=== PATIENT | female | born 1950 | race Two or more races ===

== ENCOUNTER 2019-09-21 07:42 | Day surgery (SDC) | payer OTHER ==
[~2019-09-21 07:42] MED LIST: CEFTIN250 MG PO; CLONAZEPAM1 MG; DEPAKOTE ER500 MG; FLUCONAZOLE150 MG PO; KETO10TA2 PO; PAROXETINE HCL30 MG; SYNTHROID88 MCG
== END 2019-09-21 14:00 | disposition home or self-care (01) ==
LOC: AMB-ENDOS 07:42
PROVIDERS: ATTEND Surgery
DX: K62.89 Other specified diseases of anus and rectum (principal); K64.8 Other hemorrhoids

== ENCOUNTER 2022-05-06 14:40 | Emergency (ER) | payer OTHER ==
[~2022-05-06] VITALS: Ht 167.6 cm; Wt 79.8 kg
[2022-05-06] MEDS ORDERED: NITROFURANTOIN100 MG PO (22:00)
== END 2022-05-06 22:06 | disposition home or self-care (01) ==
LOC: ER 14:40
DX: N39.0 Urinary tract infection, site not specified (principal); B96.89 Other specified bacterial agents as the cause of diseases classified elsewhere; R31.9 Hematuria, unspecified; I10 Essential (primary) hypertension; Z88.8 Allergy status to other drugs, medicaments and biological substances